=== PATIENT | male | born 1960 | race Caucasian/White ===

== ENCOUNTER 2017-08-14 10:31 | Emergency (ER) | payer BC ==
[~2017-08-14] VITALS: Ht 182.9 cm; Wt 104.3 kg
[2017-08-14] MEDS ORDERED: ACIPHEX20 MG (10:55)
== END 2017-08-14 12:33 | disposition home or self-care (01) ==
LOC: ER 10:31
DX: K21.9 Gastro-esophageal reflux disease without esophagitis (principal)